=== PATIENT | female | born 1980 | race Caucasian/White ===

== ENCOUNTER 2019-01-30 15:35 | Observation (INO) | payer OTHER ==
[2019-01-30 16:28] VITALS: BMI 27.9
[2019-01-30 17:04] LABS: Absolute Lymphocytes (CBC) 2.3 K/uL (0.7-4.9); Basophils % 1.3 % (0-1.3); Eosinophils % 5.3 % (0-4.4); Hematocrit 40.2 % (36.0-45.0); Lymphocytes % 28.3 % (15.3-44.8); MPV 9.5 fL (7.6-11.3); Monocytes % 7.7 % (3.3-12.3); RBC Red Blood Cell Count 4.42 M/uL (3.86-4.86)
[2019-01-30 17:15] LABS: ALT/SGPT 17 U/L (12-78); AST/SGOT 14 U/L (15-37); Albumin 3.8 g/dL (3.4-5.0); Alkaline Phosphatase 78 U/L (45-117); BUN Blood Urea Nitrogen 8 mg/dL (7-18); Bicarbonate 25 mmol/L (21-32); Bilirubin Total 0.2 mg/dL (0.2-1.0); Glucose Level 77 mg/dL (74-106); Potassium 4.2 mmol/L (3.5-5.1); Protein, Total 6.6 g/dL (6.4-8.2); Sodium Level 142 mmol/L (136-145)
[2019-01-30] MEDS: NACHLORIDE 0.45% 1,000 ML IV SCH (19:03)
--- NOTE | 2019-01-30 19:56 | RAD REPORT ---
EXAM DESCRIPTION: CT - Abdomen Pelvis W Contrast - 01/30/2019 7:01 pm CLINICAL HISTORY: Abdominal pain, right lower quadrant pain COMPARISON: None. TECHNIQUE: Biphasic, helical CT imaging of the abdomen and pelvis was performed following 100 ml non -ionic IV contrast. Oral contrast was given. All CT scans are performed using dose optimization technique as appropriate and may include automated exposure control or mA/KV adjustment according to patient size. FINDINGS: No suspicious findings in the lung bases. The liver, spleen, and pancreas show no suspicious findings. Gallbladder and biliary tree are also wi thout suspicious finding. Symmetric renal function is seen with no hydronephrosis or suspicious renal mass. No pyelonephritis o r acute parenchymal process. No bladder abnormalities. No adrenal abnormalities. Uterus and ovaries s how no suspicious findings. No dilated bowel loops or bowel wall thickening. The appendix is normal. No free air, free fluid or i nflammatory stranding. No hernia, mass or bulky lymphadenopathy. No suspicious bony findings. IMPRESSION: No appendicitis or other acute finding in the right lower quadrant. Overall, CT abdomen and pelvis imaging shows no significant or suspicious finding.
[2019-01-30] MEDS: MORPHINE 4 MG/ML SYR IV PRN (20:36)
[2019-01-31] MEDS: NACHLORIDE 0.45% 1,000 ML IV SCH ×2 (01:54→08:25)
[2019-01-31] MEDS: MORPHINE 4 MG/ML SYR IV PRN ×3 (01:54→14:50)
[2019-01-31] MEDS ORDERED: ONDANSETRON 4 MG/2 ML VIAL IV PRN (08:05)
[2019-01-31 10:48] VITALS: O2SAT 99
[2019-01-31 16:03] VITALS: BP 109/67; TEMP 97.1
--- NOTE | 2019-01-31 21:46 | HP ---
Date of Admission: 01/30/2019 Chief Complaint: Right lower quadrant pain. History Of Present Illness: A 38-year-old female was brought to the office with right lower quadrant pain, nausea, and diarrhea. The patient was examined, and she was found to be very tender in the [facility] lower quadrant with a possibility of acute appendicitis or acute abdomen. The patient was admitt ed for observation. There was no history of blood in the stools. No history of vomiting of blood. Past Medical History: Essentially negative except for foot surgery, and tubal ligation. Family History: Positive for heart disease, hypertension, and hyperlipidemia. Personal History: No known allergies. Home Medicines: None. Review of Systems: Negative. Physical Examination: General: Revealed a 38-year-old female in [id number] pain. Vital Signs: Temperature normal. HEENT: No icterus. Neck: Supple. JVD negative. Chest: Clear. Heart: Regular. Abdomen: Tender right lower quadrant. No palpable mass. Extremities: No edema. Laboratory Data: CAT scan of the abdomen is essentially negative. CBC normal. Chem profile normal. Assessment: Right lower quadrant pain, possible gastroenteritis. The patient received IV fluids, and she is feeling better, and she would like to go home. She will b e discharged on Cipro and pain medication. She will be reexamined in the office to see whether any f urther workup would be necessary. GISELLE/LOCO Voice ID: [id number]
== END 2019-01-31 16:43 | disposition home or self-care (01) ==
LOC: 4TH 15:40
PROVIDERS: ADMIT Internal Medicine; ATTEND Internal Medicine
DX: R10.31 Right lower quadrant pain (principal)
CPT/HCPCS: 36415; 74177; 80053; 84703; 85025; G0378; Q9967

== ENCOUNTER 2020-06-24 07:39 | Emergency (ER) | payer OTHER, SELFPAY ==
--- OUTSIDE RECORDS SUMMARY | 2020-06-24 07:41 | XMS REPORT | Continuity of Care Document ---
:1980 Author Organization [facility] t Address [address] [place] [address] [address] [place] [address] Care Team Providers Name Role Phone Unavailable Unavailable Unavailable Problems This patient has no known problems. Allergies, Adverse Reactions, Alerts This patient has no known allergies or adverse reactions. Medications This patient has no known medications. Procedures This patient has no known procedures. Results Test Description Test Time Test Comments [facility] 2020-05-20 DIAG MAMM BILATERAL BILATERAL [facility] 13:41:13 [facility] CAD CAD DIGITAL DIGITALBILATERAL DIGITAL DIAGNOSTIC MAMMOGRAM 3D/2D WITH CAD: 05/20/2020CLINICAL: Followup to previous exam. Digital breast tomosynthesis was performed in addition to routine CC and MLO views. Current mammographic images were evaluated by either a Auto Load Logic M-Vu or a Mobile Active Defensegic ImageChecker CAD (computer aided detection system). Comparison is made to exams dated 12/17/2018 mammogram - [facility], 07/21/2014 mammogram, and 07/17/2013 mammogram - [facility]-. The tissue of both breasts is heterogeneously dense. This may lower the sensitivity of mammography. No suspicious mass, architectural distortion, malignant type calcification, or lymph node abnormality detected. INCOMPLETE: ADDITIONAL IMAGING EVALUATION NEEDEDThere is no mammographic evidence of malignancy. Bilateral survey ultrasound to follow.- BREAST ULTRASOUND BILATERALULTRASOUND OF BOTH BREASTS: 05/20/2020Comparison is made to exams dated 12/17/2018 mammogram - [facility], 07/21/2014 mammogram, and 07/17/2013 mammogram - [facility]. Color flow and real-time ultrasound of both breasts were performed. Handy scale images of the real-time examination were reviewed. The breast tissue has heterogenous background echotexture. Stable solid oval mass in the left breast at 2 o'clock, 2 cm from nipple, since 01/2019. The rest of the bilateral survey ultrasound is negative. No axillary lymphadenopathy was seen.IMPRESSION: PROBABLY BENIGN - FOLLOW-UP RECOMMENDEDStable mass in the left breast since 2018. BI-RADS 3. A follow-up ultrasound in 12 months is recommended to demonstrate 2 years of stability. Min Duarte M.D. ss/:05/20/2020 13:41:13 Carpenter Mate: Liz HIDALGO, [facility]-letter sent: Short Term Follow Up Mammogram BI-RADS: 0 Incomplete: Additional Imaging Evaluation Needed Ultrasound BI-RADS: 3 Probably benign DIAG MAMM 2020-05-20 DIAG MAMM BILATERAL BILATERAL [facility] 13:41:13 [facility] CAD CAD DIGITAL DIGITALBILATERAL DIGITAL DIAGNOSTIC MAMMOGRAM 3D/2D WITH CAD: 05/20/2020CLINICAL: Followup to previous exam. Digital breast tomosynthesis was performed in addition to routine CC and MLO views. Current mammographic images were evaluated by either a Auto Load Logic M-Vu or a iConclude ImageChecker CAD (computer aided detection system). Comparison is made to exams dated 12/17/2018 mammogram - [facility], 07/21/2014 mammogram, and [facility] The tissue of both breasts is heterogeneously dense. This may lower the sensitivity of mammography. No suspicious mass, architectural distortion, malignant type calcification, or lymph node abnormality detected. INCOMPLETE: ADDITIONAL IMAGING EVALUATION NEEDEDThere is no mammographic evidence of malignancy. Bilateral survey ultrasound to follow.- BREAST ULTRASOUND BILATERALULTRASOUND OF BOTH BREASTS: 05/20/2020Comparison is made to exams dated 12/17/2018 mammogram - [facility], 07/21/2014 mammogram, and [facility]17/[facility]. Color flow and real-time ultrasound of both breasts were performed. Handy scale images of the real-time examination were reviewed. The breast tissue has heterogenous background echotexture. Stable solid oval mass in the left breast at 2 o'clock, 2 cm from nipple, since 01/2019. The rest of the bilateral survey ultrasound is negative. No axillary lymphadenopathy was seen.IMPRESSION: PROBABLY BENIGN - FOLLOW-UP RECOMMENDEDStable mass in the left breast since 2019. BI-RADS 3. A follow-up ultrasound in 12 months is recommended to demonstrate 2 years of stability. Min Duarte M.D. ss/:05/20/2020 13:41:13 Carpenter Mate: Liz HIDALGO, [facility]-letter sent: Short Term Follow Up Mammogram BI-RADS: 0 Incomplete: Additional Imaging Evaluation Needed Ultrasound BI-RADS: 3 Probably benign BREAST ULTRASOUND 2020-05-20 DIAG MAMM BILATERAL B[facility]AL 13:41:13 [facility] CAD DIGITALBILATERAL DIGITAL DIAGNOSTIC MAMMOGRAM 3D/2D WITH CAD: 05/20/2020CLINICAL: Followup to previous exam. Digital breast tomosynthesis was performed in addition to routine CC and MLO views. Current mammographic images were evaluated by either a Auto Load Logic M-Vu or a iConclude ImageChecker CAD (computer aided detection system). Comparison is made to exams dated 12/17/2018 mammogram - [facility], 07/21/2014 mammogram, and [facility]. The tissue of both breasts is heterogeneously dense. This may lower the sensitivity of mammography. No suspicious mass, architectural distortion, malignant type calcification, or lymph node abnormality detected. INCOMPLETE: ADDITIONAL IMAGING EVALUATION NEEDEDThere is no mammographic evidence of malignancy. Bilateral survey ultrasound to follow.- BREAST ULTRASOUND BILATERALULTRASOUND OF BOTH BREASTS: 05/20/2020Comparison is made to exams dated 12/17/2018 mammogram - [facility], 07/21/2014 mammogram, and [facility]17/[facility]. Color flow and real-time ultrasound of both breasts were performed. Handy scale images of the real-time examination were reviewed. The breast tissue has heterogenous background echotexture. Stable solid oval mass in the left breast at 2 o'clock, 2 cm from nipple, since 01/2019. The rest of the bilateral survey ultrasound is negative. No axillary lymphadenopathy was seen.IMPRESSION: PROBABLY BENIGN - FOLLOW-UP RECOMMENDEDStable mass in the left breast since 2019. BI-RADS 3. A follow-up ultrasound in 12 months is recommended to demonstrate 2 years of stability. Min Duarte M.D. ss/:05/20/2020 13:41:13 Carpenter Mate: Liz HIDALGO, [facility] Term Follow Up Mammogram BI-RADS: 0 Incomplete: Additional Imaging Evaluation Needed Ultrasound BI-RADS: 3 Probably benign DIAG MAMM LEFT 2019-02-06 - DIAG MAMM LEFT [facility] CAD DIGITAL 16:20:23 CAD DIGITALUNILATERAL LEFT DIGITAL DIAGNOSTIC MAMMOGRAM 3D/2D WITH CAD: 02/06/2019CLINICAL: Abnormal Mammogram, Diffuse bilateral breast pain. Digital breast tomosynthesis was performed in addition to routine CC and MLO views. Current mammographic images were evaluated by either a Auto Load Logic M-Vu or a iConclude ImageChecker CAD (computer aided detection system). Comparison is made to exams dated 07/21/2014 mammogram, [facility], and 12/17/2018 mammogram - [facility]. The tissue of the left breast is heterogeneously dense. This may lower the sensitivity of mammography. There is a 6 mm oval low density mass with an obscured margin in the left breast at 2 o'clock, 2 cm from the nipple. No other significant masses or calcifications are seen in the left breast. IMPRESSION: INCOMPLETE ASSESSMENT: ADDITIONAL IMAGING EVALUATION RECOMMENDEDThe 6 mm oval low density mass in the left breast is indeterminate. Same day bilateral breast ultrasound was performed. Please see report.Marion Ghotra MD hs/:02/06/2019 16:20:23 Entry: - 02/07/2019 09:47:25Imaging Technologist: Dania HIDALGO, [facility]ADS: 0 Indeterminate BREAST ULTRASOUND 2019-02-06 - BREAST ULTRASOUND BILATERAL 16:20:00 BILATERALULTRASOUND OF BOTH BREASTS AND BOTH AXILLA: 02/06/2019Comparison is made to exams dated 07/21/2014 mammogram, [facility], and 12/17/2018 mammogram - [facility]. Color flow and real-time ultrasound of both breasts and axilla were performed. Handy scale images of the real-time examination were reviewed. There is a 0.6 x 0.5 x 0.3 cm oval mass with a circumscribed margin in the left breast at 2 o'clock, 2 cm from the nipple. This oval mass is hypoechoic. This correlates with mammography findings. No abnormalities were seen sonographically in the left axilla/right axilla or the right breast. IMPRESSION: PROBABLY BENIGN - FOLLOW-UP RECOMMENDEDLEFT BREAST: A 0.6 cm oval circumscribed hypoechoic mass in the left breast at 2 o'clock, 2 cm from the nipple, is probably benign. A follow-up ultrasound in 6 months is recommended to demonstrate stability. RIGHT BREAST: No sonographic evidence of malignancy.The above findings and recommendations were discussed with the patient at the time of the examination.Marion Ghotra MD hs/:02/06/2019 16:20:00 Entry: cp - 02/07/2019 09:48:00Imaging Technologist: Dania HIDALGO, [facility]-FWletter sent: Short Term Follow Up Ultrasound BI-RADS: 3 Probably benign
[2020-06-24 08:20] LABS: Absolute Lymphocytes (CBC) 0.8 K/uL (0.7-4.9); Basophils % 0.4 % (0-1.3); Hematocrit 43.8 % (36.0-45.0); Lymphocytes % 7.4 % (15.3-44.8); MPV 9.6 fL (7.6-11.3); RBC Red Blood Cell Count 4.85 M/uL (3.86-4.86)
[2020-06-24] MEDS ORDERED: NA CHLORIDE 0.9% 1,000 ML ONE (08:20)
[2020-06-24] MEDS ORDERED: FAMOTIDINE 20 MG/2 ML VIAL IV ONE (08:20)
[2020-06-24] MEDS ORDERED: MORPHINE 4 MG/ML SYR ONE ×2 (08:20→11:03)
[2020-06-24] MEDS ORDERED: ONDANSETRON 4 MG/2 ML VIAL ONE ×2 (08:20→11:03)
[2020-06-24 08:37] LABS: Urine Blood TRACE (NEG); Urine Glucose TRACE (NEG); Urine Protein 2+ (NEG)
[2020-06-24 08:37] LABS: ALT/SGPT 22 U/L (12-78); AST/SGOT 20 U/L (15-37); Albumin 3.7 g/dL (3.4-5.0); Alkaline Phosphatase 82 U/L (45-117); BUN Blood Urea Nitrogen 8 mg/dL (7-18); Bicarbonate 25 mmol/L (21-32); Bilirubin Direct < 0.1 mg/dL (0-0.2); Bilirubin Total 0.2 mg/dL (0.2-1.0); Glucose Level 106 mg/dL (74-106); Lipase 37 U/L (73-393); Potassium 3.1 mmol/L (3.5-5.1); Protein, Total 7.7 g/dL (6.4-8.2); Sodium Level 136 mmol/L (136-145)
[2020-06-24] MEDS ORDERED: METRONIDAZOLE 500mg IVPB 500 MG/100 ML BAG IV ONE (08:45)
[2020-06-24] MEDS ORDERED: CIPROFLOXACIN 400mg IV 400 MG/200 ML BAG IV ONE (08:45)
--- NOTE | 2020-06-24 08:47 | RAD REPORT ---
EXAM DESCRIPTION: CTAbdomen Pelvis W Contrast - 06/24/2020 8:27 am CLINICAL HISTORY: Abdominal pain. ABD PAIN COMPARISON: Abdomen Pelvis W Contrast dated 01/30/2019 TECHNIQUE: Biphasic CT imaging of the abdomen and pelvis was performed with 100 ml non-ionic IV cont rast. All CT scans are performed using dose optimization technique as appropriate and may include automated exposure control or mA/KV adjustment according to patient size. FINDINGS: The lung bases are clear. The liver, spleen, pancreas, adrenal glands and kidneys are within normal limits. No bowel obstruction, free air, or abscess. Moderate inflammatory thickening of the colon is seen par ticularly the cecum, ascending colon and transverse colon compatible with colitis. Trace pelvic free fluid. The appendix is normal. No evidence of significant lymphadenopathy. No suspicious bony findings. IMPRESSION: Moderate colitis pattern is seen as detailed.
--- NOTE | 2020-06-24 10:41 | EDPHYS ---
Physician Documentation [facility] Name: Roz Pineda Age: 39 yrs Sex: Female : 1980 Arrival Date: 06/24/2020 Time: 07:42 Bed 18 Private MD: ANNALEE Physician Chago Ortega HPI: 06/24 08:03 This 39 yrs old Female presents to ER via Ambulatory with complaints of martin Abdominal Pain. 08:03 The patient presents with abdominal pain. Onset: The symptoms/episode began/occurred 5 martin day(s) ago. The symptoms do not radiate. Associated signs and symptoms: Pertinent positives: nausea. The symptoms are described as constant, crampy. Modifying factors: The symptoms are alleviated by nothing, the symptoms are aggravated by nothing. The patient has not experienced similar symptoms in the past. 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 - Social history:: Smoking status: . - Family history:: not pertinent. ROS: 08:03 Constitutional: Negative for fever, chills, and weight loss, Eyes: Negative for injury, martin pain, redness, and discharge, ENT: Negative for injury, pain, and discharge, Neck: Negative for injury, pain, and swelling, Cardiovascular: Negative for chest pain, palpitations, and edema, Respiratory: Negative for shortness of breath, cough, wheezing, and pleuritic chest pain, Back: Negative for injury and pain, : Negative for injury, bleeding, discharge, and swelling, MS/Extremity: Negative for injury and deformity, Skin: Negative for injury, rash, and discoloration, Neuro: Negative for headache, weakness, numbness, tingling, and seizure. 08:03 Abdomen/GI: Positive for abdominal pain, abdominal cramps, abdominal distension. Exam: 08:03 Constitutional: This is a well developed, well nourished patient who is awake, alert, martin and in no acute distress. Head/Face: Normocephalic, atraumatic. Eyes: Pupils equal round and reactive to light, extra-ocular motions intact. Lids and lashes normal. Conjunctiva and sclera are non-icteric and not injected. Cornea within normal limits. Periorbital areas with no swelling, redness, or edema. ENT: Nares patent. No nasal discharge, no septal abnormalities noted. Tympanic membranes are normal and external auditory canals are clear. Oropharynx with no redness, swelling, or masses, exudates, or evidence of obstruction, uvula midline. Mucous membranes moist. Neck: Trachea midline, no thyromegaly or masses palpated, and no cervical lymphadenopathy. Supple, full range of motion without nuchal rigidity, or vertebral point tenderness. No Meningismus. Chest/axilla: Normal chest wall appearance and motion. Nontender with no deformity. No lesions are appreciated. Cardiovascular: Regular rate and rhythm with a normal S1 and S2. No gallops, murmurs, or rubs. Normal PMI, no JVD. No pulse deficits. Respiratory: Lungs have equal breath sounds bilaterally, clear to auscultation and percussion. No rales, rhonchi or wheezes noted. No increased work of breathing, no retractions or nasal flaring. Back: No spinal tenderness. No costovertebral tenderness. Full range of motion. Skin: Warm, dry with normal turgor. Normal color with no rashes, no lesions, and no evidence of cellulitis. MS/ Extremity: Pulses equal, no cyanosis. Neurovascular intact. Full, normal range of motion. Neuro: Awake and alert, GCS 15, oriented to person, place, time, and situation. Cranial nerves II-XII grossly intact. Motor strength 5/5 in all extremities. Sensory grossly intact. Cerebellar exam normal. Normal gait. Psych: Awake, alert, with orientation to person, place and time. Behavior, mood, and affect are within normal limits. 08:03 Abdomen/GI: Inspection: abdomen appears normal, Bowel sounds: normal, Palpation: mild abdominal tenderness, Liver: no appreciated palpable abnormalities, Hernia: not appreciated. Vital Signs: 07:47 BP 140 / 98; Pulse 94; Resp 16; Temp 98.2(O); Pulse Ox 98% on R/A; Weight 63.5 kg; tw2 Height 5 ft. 4 in. (162.56 cm); Pain 7/10; 08:37 BP 156 / 86; Pulse 80; Resp 16; Pulse Ox 100% on R/A; Pain 4/10; tw2 09:35 BP 134 / 84; Pulse 77; Resp 17; Pulse Ox 99% on R/A; tw2 10:10 BP 140 / 84; Pulse 77; Resp 17; Pulse Ox 100% ; ll1 11:22 BP 134 / 88; Pulse 80; Resp 17; Pulse Ox 100% ; ll1 07:47 Body Mass Index 24.03 (63.50 kg, 162.56 cm) tw2 MDM: 07:53 Patient medically screened. martin 08:05 Differential diagnosis: appendicitis, bowel obstruction, cholecystitis, Cholelithiasis, martin diverticulitis, gastritis, non-specific abd pain, pancreatitis, Peptic Ulcer Disease, Pyelonephritis, urinary tract infection. Data reviewed: vital signs, nurses notes, lab test result(s), radiologic studies, CT scan. 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 Test interpretation: by ED physician or midlevel provider:. Counseling: I had a detailed discussion with the patient and/or guardian regarding: the historical points, exam findings, and any diagnostic results supporting the discharge/admit diagnosis, lab results, radiology results. 06/24 07:54 Order name: Basic Metabolic Panel; Complete Time: 09:29 tw2 06/24 07:54 Order name: CBC with Diff; Complete Time: 09:29 tw2 06/24 07:54 Order name: Hepatic Function; Complete Time: 09:29 tw2 06/24 07:54 Order name: Lipase; Complete Time: 09:29 tw2 06/24 08:02 Order name: Urine Dipstick--Ancillary (enter results); Complete Time: 09:29 bd 06/24 08:02 Order name: Urine --Ancillary (enter results); Complete Time: 09:29 bd 06/24 08:02 Order name: CT Abd/Pelvis - IV Contrast Only; Complete Time: 09:29 martin 06/24 09:06 Order name: CREATININE WHOLE BLOOD; Complete Time: 09:29 EDNE 06/24 07:54 Order name: IV Saline Lock; Complete Time: 08:06 tw2 06/24 07:54 Order name: Labs collected and sent; Complete Time: 08:06 tw2 11/11 07:54 Order name: Urine Dipstick-Ancillary (obtain specimen); Complete Time: 08:05 06/24 07:54 Order name: Urine Test (obtain specimen); Complete Time: 08:05 06/24 10:38 Order name: PO challenge: juice; Complete Time: 10:39 martin Administered Medications: 08:14 Drug: Zofran (Ondansetron) 4 mg Route: IVP; Site: right antecubital; tw2 08:36 Follow up: Response: No adverse reaction; No adverse reaction, 2 ml tw2 08:15 Drug: NS 0.9% 1000 ml Route: IV; Rate: 1 bolus; Site: right antecubital; tw2 09:52 Follow up: Response: No adverse reaction; IV Status: Completed infusion; IV Intake: tw2 1000ml 08:16 Drug: morphine 4 mg {Note: RASS 0.} Route: IVP; Site: right antecubital; tw2 08:35 Follow up: Response: No adverse reaction; Pain is decreased; RASS: Alert and Calm (0); tw2 RASS: Alert and Calm (0) - 1 ml 08:17 Drug: Pepcid 20 mg Route: IVP; Site: right antecubital; tw2 08:36 Follow up: Response: No adverse reaction; No adverse reaction, 2 ml tw2 08:35 Drug: Flagyl 500 mg Volume: 100 ml; Route: IVPB; Rate: 200 ml/hr; Infused Over: 30 tw2 mins; Site: right antecubital; 09:07 Follow up: Response: No adverse reaction; IV Status: Completed infusion; IV Intake: tw2 100ml 09:07 Drug: Cipro 400 mg Volume: 200 ml; Route: IVPB; Infused Over: 60 mins; Site: right tw2 antecubital; 10:10 Follow up: Response: No adverse reaction; IV Status: Completed infusion; IV Intake: ll1 100ml 10:47 Drug: Potassium Effervescent Tablet 25 mEq Route: PO; ll1 11:24 Follow up: Response: No adverse reaction; RASS: Alert and Calm (0) ll1 10:58 Drug: morphine 4 mg Route: IVP; Site: right antecubital; ll1 11:24 Follow up: Response: No adverse reaction; RASS: Alert and Calm (0) ll1 10:58 Drug: Zofran (Ondansetron) 4 mg Route: IVP; Site: right antecubital; ll1 11:25 Follow up: Response: No adverse reaction; RASS: Alert and Calm (0) ll1 Disposition: 06/24/20 10:40 Discharged to Home. Impression: Abdominal tenderness, Left sided colitis, Hypokalemia. - Condition is Stable. - Discharge Instructions: Abdominal Pain, Adult, Potassium Content of Foods, Abdominal Pain, Adult, [id number], Hypokalemia, Colitis. - Prescriptions for Bentyl 20 mg Oral Tablet - take 1 tablet by ORAL route every 6 hours As needed; 20 tablet. Flagyl 500 mg Oral Tablet - take 1 tablet by ORAL route every 8 hours for 7 days; 21 tablet. Pepcid 20 mg Oral Tablet - take 1 tablet by ORAL route every 12 hours for 10 days; 20 tablet. Zofran 4 mg Oral Tablet - take 1 tablet by ORAL route every 12 hours As needed; 20 tablet. Cipro 500 mg Oral Tablet - take 1 tablet by ORAL route every 12 hours for 7 days; 14 tablet. - Medication Reconciliation Form, Thank You Letter, Antibiotic Education, Prescription Opioid Use form. - Follow up: Private Physician; When: 2 - 3 days; Reason: Recheck today's complaints, Continuance of care, Re-evaluation by your physician. Follow up: Jan Reyes MD; When: 2 - 3 days; Reason: Recheck today's complaints, Continuance of care, Re-evaluation by your physician. - Problem is new. - Symptoms have improved. Signatures: Dispatcher [employer] [facility] [place] Chago Ortega MD MD cha Wise, Tara, RN RN tw2 Carmella Altman RN RN ll1 Corrections: (The following items were deleted from the chart) 11: 10:40 06/24/2020 10:40 Discharged to Home. Impression: Abdominal tenderness; Left sided ll1 colitis; Hypokalemia. Condition is Stable. Forms are Medication Reconciliation Form, Thank You Letter, Antibiotic Education, Prescription Opioid Use. Follow up: Private Physician; When: 2 - 3 days; Reason: Recheck today's complaints, Continuance of care, Re-evaluation by your physician. Follow up: Jan Reyes; When: 2 - 3 days; Reason: Recheck today's complaints, Continuance of care, Re-evaluation by your physician. Problem is new. Symptoms have improved. martin
--- NOTE | 2020-06-24 10:41 | ER ---
Nurse's Notes [facility] Name: Roz Pineda Age: 39 yrs Sex: Female : 1980 Arrival Date: 06/24/2020 Time: 07:42 Bed 18 Private MD: Diagnosis: Abdominal tenderness;Left sided colitis;Hypokalemia Presentation: 06/24 07:48 Chief complaint: Patient states: i was diagnosed with diverticulitis last year and i tw2 think i am having a flare up since Monday, i am nauseous but i do not vomit because i cant eat anything and having diarrhea and abdominal pain all over. Coronavirus screen: diarrhea, nausea. Ebola Screen: Patient denies travel to an Ebola-affected area in the 21 days before illness onset. Initial Sepsis Screen: Does the patient meet any 2 criteria? No. Patient's initial sepsis screen is negative. Does the patient have a suspected source of infection? No. Patient's initial sepsis screen is negative. Risk Assessment: Do you want to hurt yourself or someone else? Patient reports no desire to harm self or others. Onset of symptoms was June 24, 2020. 07:48 Method Of Arrival: Ambulatory tw2 07:48 Acuity: NIGEL 3 tw2 07:[address] Ortega droplet precautions not indicated. tw2 Triage Assessment: 07:50 General: Appears uncomfortable, slender, well groomed, Behavior is cooperative, tw2 appropriate for age, crying. Pain: Complains of pain in abdomen. EENT: No signs and/or symptoms were reported regarding the EENT system. Neuro: Level of Consciousness is awake, alert, obeys commands, Oriented to person, place, time, situation. Cardiovascular: Heart tones S1 S2 Patient's skin is warm and dry. Respiratory: Airway is patent Respiratory effort is even, unlabored, Respiratory pattern is regular, symmetrical, Breath sounds are clear bilaterally. GI: Reports lower abdominal pain, upper abdominal pain, diarrhea, nausea. GI: Abdomen is flat, Bowel sounds present X 4 quads. : No signs and/or symptoms were reported regarding the genitourinary system. Derm: No signs and/or symptoms reported regarding the dermatologic system. Musculoskeletal: Range of motion: intact in all extremities. Musculoskeletal: Circulation, motion, and sensation intact. RETOUCHER: 07:52 LMP 06/13/2020 tw2 Historical: - Allergies: 07:50 No Known Allergies; tw2 - Home Meds: 07:50 None [Active]; tw2 - PMHx: 07:50 Diverticulitis; tw2 - PSHx: 07:50 ankle; tw2 08:11 ; tw2 - Immunization history:: Adult Immunizations. - Social history:: Smoking status: . - Family history:: not pertinent. Screenin:52 Abuse screen: Denies threats or abuse. Nutritional screening: No deficits noted. tw2 Tuberculosis screening: No symptoms or risk factors identified. Fall Risk None identified. Assessment: 07:50 GI: Abd is soft and non tender X 4 quads. Abdomen is tender to palpation X 4 quads. tw2 07:51 Reassessment: see triage assessment. tw2 08:38 Reassessment: Patient appears in no apparent distress at this time. Patient and/or tw2 family updated on plan of care and expected duration. Pain level reassessed. Patient is alert, oriented x 3, equal unlabored respirations, skin warm/dry/pink. Patient states feeling better. 09:37 Reassessment: Patient appears in no apparent distress at this time. Patient and/or tw2 family updated on plan of care and expected duration. Pain level reassessed. Patient is alert, oriented x 3, equal unlabored respirations, skin warm/dry/pink. 10:00 Reassessment: Patient and/or family updated on plan of care and expected duration. Pain ll1 level reassessed. 11:00 Reassessment: Patient and/or family updated on plan of care and expected duration. Pain ll1 level reassessed. Vital Signs: 07:47 BP 140 / 98; Pulse 94; Resp 16; Temp 98.2(O); Pulse Ox 98% on R/A; Weight 63.5 kg; tw2 Height 5 ft. 4 in. (162.56 cm); Pain 7/10; 08:37 BP 156 / 86; Pulse 80; Resp 16; Pulse Ox 100% on R/A; Pain 4/10; tw2 09:35 BP 134 / 84; Pulse 77; Resp 17; Pulse Ox 99% on R/A; tw2 10:10 BP 140 / 84; Pulse 77; Resp 17; Pulse Ox 100% ; ll1 11:22 BP 134 / 88; Pulse 80; Resp 17; Pulse Ox 100% ; ll1 07:47 Body Mass Index 24.03 (63.50 kg, 162.56 cm) tw2 ED Course: 07:42 Patient arrived in ED. ds1 07:43 Virginia Deutsch RN is Primary Nurse. tw2 07:43 Placed in gown. Bed in low position. Pulse ox on. NIBP on. tw2 07:50 Triage completed. tw2 07:50 Arm band placed on. tw2 07:53 Chago Ortega MD is Attending Physician. martin 08:27 CT Abd/Pelvis - IV Contrast Only In Process Unspecified. EDMS 09:53 Report given to ODALIS Ryder. tw2 10:39 Jan Reyes MD is Referral Physician. martin 11:23 IV discontinued, intact, bleeding controlled, No redness/swelling at site. Pressure ll1 dressing applied. 11:25 No provider procedures requiring assistance completed. tw2 Administered Medications: 08:14 Drug: Zofran (Ondansetron) 4 mg Route: IVP; Site: right antecubital; tw2 08:36 Follow up: Response: No adverse reaction; No adverse reaction, 2 ml tw2 08:15 Drug: NS 0.9% 1000 ml Route: IV; Rate: 1 bolus; Site: right antecubital; tw2 09:52 Follow up: Response: No adverse reaction; IV Status: Completed infusion; IV Intake: tw2 1000ml 08:16 Drug: morphine 4 mg {Note: RASS 0.} Route: IVP; Site: right antecubital; tw2 08:35 Follow up: Response: No adverse reaction; Pain is decreased; RASS: Alert and Calm (0); tw2 RASS: Alert and Calm (0) - 1 ml 08:17 Drug: Pepcid 20 mg Route: IVP; Site: right antecubital; tw2 08:36 Follow up: Response: No adverse reaction; No adverse reaction, 2 ml tw2 08:35 Drug: Flagyl 500 mg Volume: 100 ml; Route: IVPB; Rate: 200 ml/hr; Infused Over: 30 tw2 mins; Site: right antecubital; 09:07 Follow up: Response: No adverse reaction; IV Status: Completed infusion; IV Intake: tw2 100ml 09:07 Drug: Cipro 400 mg Volume: 200 ml; Route: IVPB; Infused Over: 60 mins; Site: right tw2 antecubital; 10:10 Follow up: Response: No adverse reaction; IV Status: Completed infusion; IV Intake: ll1 100ml 10:47 Drug: Potassium Effervescent Tablet 25 mEq Route: PO; ll1 11:24 Follow up: Response: No adverse reaction; RASS: Alert and Calm (0) ll1 10:58 Drug: morphine 4 mg Route: IVP; Site: right antecubital; ll1 11:24 Follow up: Response: No adverse reaction; RASS: Alert and Calm (0) ll1 10:58 Drug: Zofran (Ondansetron) 4 mg Route: IVP; Site: right antecubital; ll1 11:25 Follow up: Response: No adverse reaction; RASS: Alert and Calm (0) ll1 Intake: 09:07 IV: 100ml; Total: 100ml. tw2 09:52 IV: 1000ml; Total: 1100ml. tw2 10:10 IV: 100ml; Total: 1200ml. 1 Outcome: 10:40 Discharge ordered by . martin 11:25 Patient left the ED. ll1 11:25 Discharged to home ambulatory, with family. tw2 11:25 Condition: stable 11:25 Discharge instructions given to patient, family, Instructed on discharge instructions, follow up and referral plans. no drinking with medication, no driving heavy equipment, medication usage, Demonstrated understanding of instructions, follow-up care, medications, Prescriptions given X 5 Signatures: Dispatcher [employer] EDMS Chago Ortega MD MD cha Sanford, Demi ds1 Virginia Deutsch RN RN 2 Ninfa Luna 3 Carmella Altman RN RN ll1 Corrections: (The following items were deleted from the chart) 08:04 07:47 BP 140 / 98; Pulse 101bpm; Resp 16bpm; Pulse Ox 98% RA; Temp 98.2F Oral; 63.5 kg; tw2 Height 5 ft. 4 in.; BMI: 24.0; Pain 7/10; dh3
[2020-06-24] MEDS ORDERED: POTASSIUM 25 MEQ EFFERV TAB ONE (10:54)
[2020-06-24 13:09] VITALS: TEMP 98.2
[2020-06-24 13:13] VITALS: O2SAT 100
[2020-06-24 13:15] VITALS: BP 134/88
== END 2020-06-24 11:25 | disposition home or self-care (01) ==
LOC: ER 07:39
DX: K51.50 Left sided colitis without complications (principal); E87.6 Hypokalemia
CPT/HCPCS: 36415; 74177; 80048; 80076; 81003; 81025; 82565; 83690; 85025; J0744; J2405; J7030; Q9967

== ENCOUNTER 2024-04-08 10:38 | Emergency (ER) | payer BC ==
--- OUTSIDE RECORDS SUMMARY | 2024-04-08 10:41 | XMS REPORT | Continuity of Care Document ---
Author Name Unknown Address [address] [place] [address] [place] [id number] [place] [address] thconnect Address [address] [facility]. 1 [address] [place] [address] Care Team Providers Care Lithographic Camera Operator Name Role Phone MILVIA_Freddy Attending Clinician Unavailable MILVIA_Freddy Admitting Clinician Unavailable Payers Payer Name Policy Type Policy Number Effective Date Expirati on Date Source [place] [id number] 2023 00:00:00 Problems Condition Name Condition Details Condition Category Status Onset Date Resolution Date Last Treatment Date Treating Clinician Comments Source Adult health examinatio n Adult Health Examinatio n Problem Active 11-23 00:00: 00 [facility] Social History Smoking Status Start Date Stop Date Source Current Every Day Smoker [facility] Medications Ordered Medication Name Filled Medication Name Start Date Stop Date Current Medication? Ordering Clinician Indication Dosage Frequency Signature (SIG) Comments Components Source estradiol 6 mg implant pellet Take 1 pellet by implantatio n route. estradiol 6 mg implant pellet Take 1 pellet by implantatio n route. 11-23 08:57: 28 No 1pellet (s) estradiol 6 mg implant pellet Take 1 pellet by implantati on route. [facility] testosteron e 100 mg implant pellet Take 100 mg by implantatio n route. testosteron e 100 mg implant pellet Take 100 mg by implantatio n route. 11-23 08:56: 59 No 100mg testostero ne 100 mg implant pellet Take 100 mg by implantati on route. [facility] hydrochloro thiazide 25 mg tablet TAKE 1 TABLET BY MOUTH EVERY DAY hydrochloro thiazide 25 mg tablet TAKE 1 TABLET BY MOUTH EVERY DAY No hydrochlor othiazide 25 mg tablet TAKE 1 TABLET BY MOUTH EVERY DAY [facility] venlafaxine ER 75 mg capsule,ext ended release 24 hr TAKE 1 CAPSULE BY MOUTH EVERY DAY FOR 90 DAYS venlafaxine ER 75 mg capsule,ext ended release 24 hr TAKE 1 CAPSULE BY MOUTH EVERY DAY FOR 90 DAYS No venlafaxin e ER 75 mg capsule,ex tended release 24 hr TAKE 1 CAPSULE BY MOUTH EVERY DAY FOR 90 DAYS [facility] bupropion HCl XL 150 mg 24 hr tablet, extended release TAKE 1 TABLET BY MOUTH EVERY DAY bupropion HCl XL 150 mg 24 hr tablet, extended release TAKE 1 TABLET BY MOUTH EVERY DAY No 1 Q1D bupropion HCl XL 150 mg 24 hr tablet, extended release TAKE 1 TABLET BY MOUTH EVERY DAY [facility] acetaminoph en 300 mg-codeine 30 mg tablet TAKE 1 TABLET BY MOUTH EVERY 4 TO 6 HOURS NEEDED FOR DENTAL PAIN acetaminoph en 300 mg-codeine 30 mg tablet TAKE 1 TABLET BY MOUTH EVERY 4 TO 6 HOURS NEEDED FOR DENTAL PAIN No acetaminop hen 300 mg-codeine 30 mg tablet TAKE 1 TABLET BY MOUTH EVERY 4 TO 6 HOURS NEEDED FOR DENTAL PAIN [facility] losartan 100 mg-hydrochl orothiazide 25 mg tablet Take 1 tablet every day by oral route for 90 days. losartan 100 mg-hydrochl orothiazide 25 mg tablet Take 1 tablet every day by oral route for 90 days. No 1 Q1D losartan 100 mg-hydroch lorothiazi de 25 mg tablet Take 1 tablet every day by oral route for 90 days. [facility] Zepbound 2.5 mg/0.5 mL subcutaneou s pen injector Inject 2.5 mg every week by subcutaneou s route for 28 days. Zepbound 2.5 mg/0.5 mL subcutaneou s pen injector Inject 2.5 mg every week by subcutaneou s route for 28 days. No 2.5mg Q1W Zepbound 2.5 mg/0.5 mL subcutaneo us pen injector Inject 2.5 mg every week by subcutaneo us route for 28 days. [facility] Vital Signs Vital Name Observation Time Observation Value Comments S ource Body Weight 2024-02-23 00:00:00 2367 [oz_av] [facility] BMI (Body Mass Index) 2024-02-23 00:00:00 25.4 kg/m2 [facility] BP Diastolic 2024-02-23 00:00:00 98 mm[Hg] [facility] Height 2024-02-23 00:00:00 64 [in_i] [facility] BP Systolic 2024-02-23 00:00:00 149 mm[Hg] [facility] Body Weight 2023-12-28 00:00:00 2319 [oz_av] [facility] Height 2023-12-28 00:00:00 64 [in_i] [facility] BMI (Body Mass Index) 2023-12-28 00:00:00 24.9 kg/m2 [facility] Height 2023-11-24 00:00:00 64 [in_i] [facility] Body Weight 2023-11-24 00:00:00 2234 [oz_av] [facility] BP Systolic 2023-11-24 00:00:00 124 mm[Hg] [facility] BMI (Body Mass Index) 2023-11-24 00:00:00 24 kg/m2 [facility] BP Diastolic 2023-11-24 00:00:00 84 mm[Hg] [facility] BP Diastolic 2023-11-02 00:00:00 92 mm[Hg] [facility] Body Weight 2023-11-02 00:00:00 2256 [oz_av] [facility] BMI (Body Mass Index) 2023-11-02 00:00:00 24.2 kg/m2 [facility] Height 2023-11-02 00:00:00 64 [in_i] [facility] BP Systolic 2023-11-02 00:00:00 137 mm[Hg] [facility] Body Weight 2023-07-26 00:00:00 2335 [oz_av] [facility] BMI (Body Mass Index) 2023-07-26 00:00:00 25 kg/m2 [facility] BP Diastolic 2023-07-26 00:00:00 132 mm[Hg] [facility] BP Systolic 2023-07-26 00:00:00 169 mm[Hg] [facility] Height 2023-07-26 00:00:00 64 [in_i] [facility] BP Systolic 2023-03-16 00:00:00 137 mm[Hg] [facility] BMI (Body Mass Index) 2023-03-16 00:00:00 24.8 kg/m2 [facility] BP Diastolic 2023-03-16 00:00:00 92 mm[Hg] [facility] Body Weight 2023-03-16 00:00:00 2314 [oz_av] [facility] Height 2023-03-16 00:00:00 64 [in_i] [facility] BP Diastolic 2023-01-17 00:00:00 89 mm[Hg] [facility] Height 2023-01-17 00:00:00 64 [in_i] [facility] BMI (Body Mass Index) 2023-01-17 00:00:00 24.8 kg/m2 [facility] BP Systolic 2023-01-17 00:00:00 155 mm[Hg] [facility] Body Weight 2023-01-17 00:00:00 2309 [oz_av] [facility] BP Diastolic 2022-11-30 00:00:00 84 mm[Hg] [facility] Height 2022-11-30 00:00:00 64 [in_i] [facility] BMI (Body Mass Index) 2022-11-30 00:00:00 24 kg/m2 [facility] BP Systolic 2022-11-30 00:00:00 127 mm[Hg] [facility] Body Weight 2022-11-30 00:00:00 2240 [oz_av] [facility] BP Diastolic 2022-10-28 00:00:00 74 mm[Hg] [facility] Height 2022-10-28 00:00:00 64 [in_i] [facility] BMI (Body Mass Index) 2022-10-28 00:00:00 24.4 kg/m2 [facility] BP Systolic 2022-10-28 00:00:00 122 mm[Hg] [facility] Body Weight 2022-10-28 00:00:00 2272 [oz_av] [facility] BP Diastolic 2022-10-11 00:00:00 101 mm[Hg] [facility] Height 2022-10-11 00:00:00 64 [in_i] [facility] BMI (Body Mass Index) 2022-10-11 00:00:00 23.9 kg/m2 [facility] BP Systolic 2022-10-11 00:00:00 153 mm[Hg] [facility] Body Weight 2022-10-11 00:00:00 2224 [oz_av] [facility] BP Diastolic 2022-09-01 00:00:00 96 mm[Hg] [facility] Height 2022-09-01 00:00:00 64 [in_i] [facility] BMI (Body Mass Index) 2022-09-01 00:00:00 25.6 kg/m2 [facility] BP Systolic 2022-09-01 00:00:00 142 mm[Hg] [facility] Body Weight 2022-09-01 00:00:00 2385.6 [oz_av] [facility] Procedures Procedure Date / Time Performed Performing Clinician Source US, pelvis, transabdominal + transvaginal 2023-12-28 00:00:00 [facility] MAMMO, screening, digital, bilateral 2023-11-24 00:00:00 [facility] MAMMO, screening, digital, bilateral 2022-12-06 00:00:00 [facility] MAMMO, screening, digital, bilateral 2022-10-28 00:00:00 [facility] Encounters Start Date/Time End Date/Time Encounter Type Admission Type Attending [facility] Facility Care Department Encounter ID Source 2024-02-23 00:00:00 2024-02-23 00:00:00 Karl Concepcion MSN, NURSING PROJECT COORDINATOR, SHOW GIRL-C: [address] [place] [address] , Ph. [facility], Karl Concepcion MSN, SHOW GIRL-C [id number] [facility] 2023-12-28 00:00:00 2023-12-28 00:00:00 Karl Concepcion MSN, NURSING PROJECT COORDINATOR, SHOW GIRL-C: [address], [address], [place] [address] , Ph. [facility], Karl Concepcion MSN, SHOW GIRL-C [id number] [facility] 2023-11-24 00:00:00 2023-11-24 00:00:00 BERNARDO Giraldo, NURSING PROJECT COORDINATOR, SHOW GIRL-C: [address], [place] [address] , Ph. SISSON_C [facility], Karl Concepcion MSN, SHOW GIRL-C [id number] [facility] 2023-11-22 00:00:00 2023-11-22 00:00:00 Outpatient [facility] [id number] [facility] 2023-11-02 00:00:00 2023-11-02 00:00:00 Karl Concepcion MSN, NURSING PROJECT COORDINATOR, SHOW GIRL-C: [address], [place] [address] , Ph. SISSON_C [facility], Karl Concepcion, MSN, SHOW GIRL-C [id number] 0321 [facility] 2023-11-02 00:00:00 2023-11-02 00:00:00 Karl Concepcion, MSN, NURSING PROJECT COORDINATOR, SHOW GIRL-C: [address], [address], [place] [address] , Ph. [facility], Karl Concepcion, MSN, SHOW GIRL-C [id number] [facility] 2023-07-26 00:00:00 2023-07-26 00:00:00 Karl Concepcion, MSN, NURSING PROJECT COORDINATOR, SHOW GIRL-C: [address], [address], [place] [address] , Ph. [facility], Karl Concepcion, MSN, SHOW GIRL-C [id number] [facility] 2023-07-12 00:00:00 2023-07-12 00:00:00 Outpatient SISSON_C [facility] [id number] [facility] 2023-06-23 00:00:00 2023-06-23 00:00:00 Outpatient SISSON_C [facility] [id number] [facility] 2023-05-19 00:00:00 2023-05-19 00:00:00 Outpatient [facility]C [facility] [id number] [facility] 2023-04-15 00:00:00 2023-04-15 00:00:00 Outpatient [facility]C [facility] [id number] [facility] 2023-04-13 00:00:00 2023-04-13 00:00:00 Outpatient [facility]C [facility] [id number] [facility] 2023-03-16 00:00:00 2023-03-16 00:00:00 Outpatient [facility]C [facility] [id number] [facility] 2023-03-16 00:00:00 2023-03-16 00:00:00 Karl Concepcion, MSN, NURSING PROJECT COORDINATOR, SHOW GIRL-C: [address], [address], [place] [address] , Ph. [facility], Karl Concepcion, MSN, SHOW GIRL-C [id number] [facility] 2023-01-17 00:00:00 2023-01-17 00:00:00 Karl Concepcion MSN, NURSING PROJECT COORDINATOR, SHOW GIRL-C: [address], [address], [place] [address] , Ph. [facility], Karl Concepcion, MSN, SHOW GIRL-C [id number] [facility] 2022-12-06 00:00:00 2022-12-06 00:00:00 Outpatient [facility]C [facility] [id number] [facility] 2022-12-06 00:00:00 2022-12-06 00:00:00 Outpatient [facility] [id number] [facility] 2022-12-06 00:00:00 2022-12-06 00:00:00 Karl Concepcion MSN, NURSING PROJECT COORDINATOR, SHOW GIRL-C: [address], [address], [place] [address] , Ph. [facility], Karl Concepcion MSN, SHOW GIRL-C [id number] [facility] 2022-11-30 00:00:00 2022-11-30 00:00:00 Outpatient [facility]SON_C [facility] [id number] [facility] 2022-11-30 00:00:00 2022-11-30 00:00:00 Karl Concepcion, MSN, NURSING PROJECT COORDINATOR, SHOW GIRL-C: [address], [address], [place] [address] , Ph. [facility], Karl Concepcion, MSN, SHOW GIRL-C [id number] [facility] 2022-10-28 00:00:00 2022-10-28 00:00:00 Karl Concepcion, MSN, NURSING PROJECT COORDINATOR, SHOW GIRL-C: [address], [address], [place] [address] , Ph. [facility], Karl Concepcion, MSN, SHOW GIRL-C [id number] [facility] 2022-10-11 00:00:00 2022-10-11 00:00:00 Outpatient [facility]C [facility] [id number] [facility] 2022-10-11 00:00:00 2022-10-11 00:00:00 Outpatient [facility]SON[facility]C [facility] [id number] [facility] 2022-10-11 00:00:00 2022-10-11 00:00:00 Karl Concepcion, MSN, NURSING PROJECT COORDINATOR, SHOW GIRL-C: [address], [address], [place] [address] , Ph. [facility], Karl Concepcion, MSN, SHOW GIRL-C [id number] [facility] 2022-09-01 00:00:00 2022-09-01 00:00:00 [facility] [id number] [facility] 2022-09-01 00:00:00 2022-09-01 00:00:00 Karl Concepcion, MSN, NURSING PROJECT COORDINATOR, SHOW GIRL-C: [address], [address], [place] [address] , Ph. [facility] [place] [facility], Karl Concepcion, MSN, SHOW GIRL-C [id number] [facility] 2022-08-23 00:00:00 2022-08-23 00:00:00 [facility] [id number] [facility] Results Test Description Test Time Test Comments Results Resul t Comments Source DIAG MAMM BILATERAL SANTHOSH CAD DIGITAL 2020-05-20 13:41:13 - DIAG MAMM BILATERAL SANTHOSH CAD DIGITALBILATERAL DIGITAL DIAGNOSTIC MAMMOGRAM 3D/2D WITH CAD: 05/20/2020CLINICAL: Followup to previous exam. Digital breast tomosynthesis was performed in addition to routine CC and MLO views. Current mammographic images were evaluated by either a [employer] M-Vu or a [employer] ImageChecker CAD (computer aided detection system). Comparison is made to exams dated 12/17/2018 mammogram - [facility], 07/21/2014 mammogram, and 07/17/2013 mammogram - [facility]-. The tissue of both breasts is heterogeneously dense. This may lower the sensitivity of mammography. No suspicious mass, architectural distortion, malignant type calcification, or lymph node abnormality detected. INCOMPLETE: ADDITIONAL IMAGING EVALUATION NEEDEDThere is no mammographic evidence of malignancy. Bilateral survey ultrasound to follow.- BREAST ULTRASOUND BILATERALULTRASOUND OF BOTH BREASTS: 05/20/2020Comparison is made to exams dated 12/17/2018 mammogram - [facility], 07/21/2014 mammogram, and 07/17/2013 mammogram - [facility]-. Color flow and real-time ultrasound of both [...] of stability. Min Duarte M.D. ss/:05/20/2020 13:41:13 Sheet Metal Layout Mechanic: Lzi HIDALGO, [facility]-letter sent: Short Term Follow Up Mammogram BI-RADS: 0 Incomplete: Additional Imaging Evaluation Needed Ultrasound BI-RADS: 3 Probably benign DIAG MAMM BILATERAL SANTHOSH CAD DIGITAL 2020-05-20 13:41:13 - DIAG MAMM BILATERAL SANTHOSH CAD DIGITALBILATERAL DIGITAL DIAGNOSTIC MAMMOGRAM 3D/2D WITH CAD: 05/20/2020CLINICAL: Followup to previous exam. Digital breast tomosynthesis was performed in addition to routine CC and MLO views. Current mammographic images were evaluated by either a [employer] M-Vu or a [employer] ImageChecker CAD (computer aided detection system). Comparison is made to exams dated 12/17/2018 mammogram - [facility], 07/21/2014 mammogram, and [facility]. The tissue of both breasts is heterogeneously dense. This may lower the sensitivity of mammography. No suspicious mass, architectural distortion, malignant type calcification, or lymph node abnormality detected. INCOMPLETE: ADDITIONAL IMAGING EVALUATION NEEDEDThere is no mammographic evidence of malignancy. Bilateral survey ultrasound to follow.- BREAST ULTRASOUND BILATERALULTRASOUND OF BOTH BREASTS: 05/20/2020Comparison is made to exams dated 12/17/2018 mammogram - [facility], 07/21/2014 mammogram, and [facility]/17/[facility]. Color flow and real-time ultrasound of [...] of stability. Min Duarte M.D. ss/:05/20/2020 13:41:13 Sheet Metal Layout Mechanic: Liz HIDALGO, [facility]-letter sent: Short Term Follow Up Mammogram BI-RADS: 0 Incomplete: Additional Imaging Evaluation Needed Ultrasound BI-RADS: 3 Probably benign BREAST ULTRASOUND BILATERAL 2020-05-20 13:41:13 - DIAG MAMM BILATERAL SANTHOSH CAD DIGITALBILATERAL DIGITAL DIAGNOSTIC MAMMOGRAM 3D/2D WITH CAD: 05/20/2020CLINICAL: Followup to previous exam. Digital breast tomosynthesis was performed in addition to routine CC and MLO views. Current mammographic images were evaluated by either a [employer] M-Vu or a [employer] ImageChecker CAD (computer aided detection system). Comparison is made to exams dated 12/17/2018 mammogram - [facility], 07/21/2014 mammogram, and [facility]. The tissue of both breasts is heterogeneously dense. This may lower the sensitivity of mammography. No suspicious mass, architectural distortion, malignant type calcification, or lymph node abnormality detected. INCOMPLETE: ADDITIONAL IMAGING EVALUATION NEEDEDThere is no mammographic evidence of malignancy. Bilateral survey ultrasound to follow.- BREAST ULTRASOUND BILATERALULTRASOUND OF BOTH BREASTS: 05/20/2020Comparison is made to exams dated 12/17/2018 mammogram - [facility], 07/21/2014 mammogram, and [facility]. Color flow and real-time ultrasound of [...] of stability. Min Duarte M.D. ss/:05/20/2020 13:41:13 Sheet Metal Layout Mechanic: Liz HIDALGO [facility] Short Term Follow Up Mammogram BI-RADS: 0 Incomplete: Additional Imaging Evaluation Needed Ultrasound BI-RADS: 3 Probably benign DIAG MAMM LEFT SANTHOSH CAD DIGITAL 2019-02-06 16:20:23 - DIAG MAMM LEFT SANTHOSH CAD DIGITALUNILATERAL LEFT DIGITAL DIAGNOSTIC MAMMOGRAM 3D/2D WITH CAD: 02/06/2019CLINICAL: Abnormal Mammogram, Diffuse bilateral breast pain. Digital breast tomosynthesis was performed in addition to routine CC and MLO views. Current mammographic images were evaluated by either a [employer] M-Vu or a [employer] ImageChecker CAD (computer aided detection system). Comparison is made to exams dated 07/21/2014 mammogram, 07/17/2013 mammogram - [facility], and 12/17/2018 mammogram - [facility]. The tissue of the left [...] see report.Marion Ghotra MD hs/:02/06/2019 16:20:23 Entry: cp - 02/07/2019 09:47:25Imaging Technologist: Dania HIDALGO [facility]ADS: 0 Indeterminate BREAST ULTRASOUND BILATERAL 2019-02-06 16:20:00 - BREAST ULTRASOUND BILATERALULTRASOUND OF BOTH BREASTS AND BOTH AXILLA: 02/06/2019Comparison is made to exams dated 07/21/2014 mammogram, [facility], and 12/17/2018 mammogram - [facility]. Color flow and real-time ultrasound [...] - 02/07/2019 09:48:00Imaging Technologist: Dania HIDALGO, [facility]-FWletter sent: Short Term Follow Up Ultrasound BI-RADS: 3 Probably benign
--- NOTE | 2024-04-08 11:07 | EDPHYS ---
Physician Documentation [facility] Name: Roz Christianson Age: 43 yrs Sex: Female : 1980 Arrival Date: 04/08/2024 Time: 10:38 Bed DX2 Private MD: ED Physician Giovanni Moreno HPI: 04/08 11:10 This 43 yrs old Female presents to ER via Ambulatory with complaints of ec2 Facial Pain. 11:10 Patient arrives today for left ear pain that has been worsening over the past several ec2 days. Has recently started amoxicillin for more improvement in symptoms. No fevers or chills, no nausea or vomiting, reports that she has some left head pain as well as throat pain. . 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 - Infectious Disease History:: unknown at this time. - Social history:: Smoking status: unknown. ROS: 11:10 Constitutional: as per hpi ec2 Exam: 11:10 Constitutional: GEN: NAD Head: atraumatic Eyes: EOMI Ears: External ears are normal. ec2 Left ear with bullous lesion, fluid behind the tympanic membrane, no vesicular spots CV: regular rate LUNGS: no respiratory distress ABD: non-distended SKIN: no evidence of rashes MSK: no evidence of trauma Vital Signs: 10:57 BP 135 / 84; Pulse 88; Resp 16; Temp 97.1; Pulse Ox 100% on R/A; Weight 65.32 kg; iw Height 5 ft. 5 in. ; Pain 4/10; 10:57 Body Mass Index 23.96 (65.32 kg, 165.1 cm) iw 10:57 Pain Scale: Adult iw MDM: 10:51 Patient medically screened. ec2 11:10 Data reviewed: vital signs. ED course: Patient arrives today for left ear pain. ec2 Examination remarkable for findings as above. Presentation consistent with bullous myringitis. Start the patient antibiotics. Will discharge home. Return precautions given. . Administered Medications: No medications were administered Disposition Summary: 04/08/24 11:06 Discharge Ordered Notes: Location: Home ec2 Condition: Stable ec2 Diagnosis - Bullous myringitis, left ear ec2 Followup: ec2 - With: Private Physician - When: - Reason: Re-evaluation by your physician Discharge Instructions: - Discharge Summary Sheet ec2 - Otitis Media, Adult, [id number] ec2 Forms: - Work release form ec2 - Medication Reconciliation Form ec2 - Antibiotic Education ec2 - Prescription Opioid Use ec2 - Patient Portal Instructions ec2 - Leadership Thank You Letter ec2 Prescriptions: - acetaminophen-codeine 300-15 mg Oral tablet - take 1 tablet ORAL route 2 times per day; 10 tablet; Refills: 0, Product ec2 Selection Permitted - clindamycin HCl 300 mg Oral capsule - take 1 capsule ORAL route every 8 hours for 10 days; 30 capsule; Refills: 0, ec2 Product Selection Permitted Signatures: Eliana Cruz RN RN iw Judith Hilton RN RN ap3 Giovanni Moreno MD MD ec2
--- NOTE | 2024-04-08 11:07 | ER ---
Nurse's Notes [facility] Name: Roz Christianson Age: 43 yrs Sex: Female : 1980 Arrival Date: 04/08/2024 Time: 10:38 Bed DX2 Private MD: Diagnosis: Bullous myringitis, left ear Presentation: 04/08 10:57 Chief complaint: Patient states: has been having left sided headaches and then my left iw ear started hurting and having a sore throat , went to urgent care ON MONDAY and they said it was dental problem, was started on amoxicillin, not any better. Coronavirus screen: At this time, the client does not indicate any symptoms associated with coronavirus-19. Ebola Screen: No symptoms or risks identified at this time. Initial Sepsis Screen: Does the patient meet any 2 criteria? No. Patient's initial sepsis screen is negative. Does the patient have a suspected source of infection? No. Patient's initial sepsis screen is negative. Risk Assessment: Do you want to hurt yourself or someone else? Patient reports no desire to harm self or others. Onset of symptoms was April 02, 2024. 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 - Infectious Disease History:: unknown at this time. - Social history:: Smoking status: unknown. Screenin:04 [facility] ED Fall Risk Assessment (Adult) History of falling in the last 3 months, iw including since admission No falls in past 3 months (0 pts) Confusion or Disorientation No (0 pts) Intoxicated or Sedated No (0 pts) Impaired Gait No (0 pts) Mobility Assist Device Used No (0 pt) Altered Elimination No (0 pt) Score/Fall Risk Level 0 - 2 = Low Risk Oriented to surroundings, Maintained a safe environment. Abuse screen: Denies injuries from another. Nutritional screening: No deficits noted. Tuberculosis screening: No symptoms or risk factors identified. Assessment: 11:04 General: Appears in no apparent distress. Behavior is calm, cooperative. Pain: iw Complains of pain in head, face and left ear. Neuro: Level of Consciousness is awake, alert, obeys commands, Oriented to person, place, time, situation, Moves all extremities. Full function. Cardiovascular: Respiratory: Respiratory effort is even, unlabored, Respiratory pattern is regular. EENT: Reports pain in left ear. Derm: Skin is intact, is healthy with good turgor. Musculoskeletal: Range of motion: intact in all extremities. Vital Signs: 10:57 BP 135 / 84; Pulse 88; Resp 16; Temp 97.1; Pulse Ox 100% on R/A; Weight 65.32 kg; iw Height 5 ft. 5 in. ; Pain 4/10; 10:57 Body Mass Index 23.96 (65.32 kg, 165.1 cm) iw 10:57 Pain Scale: Adult iw ED Course: 10:41 Patient arrived in ED. mg5 10:41 Giovanni Moreno MD is Attending Physician. ec2 10:59 Triage completed. iw 11:01 Arm band placed on. iw 11:05 Eliana Cruz, RN is Primary Nurse. iw 11:05 No provider procedures requiring assistance completed. Patient did not have IV access iw during this emergency room visit. 11:17 Patient has correct armband on for positive identification. Provided Education on: ap3 discharge instructions. Administered Medications: No medications were administered Medication: 11:05 VIS not applicable for this client. iw Outcome: 11:06 Discharge ordered by . ec2 11:16 Discharged to home ambulatory, ap3 11:16 Condition: good 11:16 Discharge instructions given to patient, Instructed on discharge instructions, follow up and referral plans. medication usage, Demonstrated understanding of instructions, follow-up care, medications, Prescriptions given X 2, 11:17 Patient left the ED. ap3 Signatures: Eliana Cruz, ODALIS JACOBO iw Judith Hilton RN RN ap3 Elsa Persaud mg5 Giovanni Moreno MD MD ec2
[2024-04-08 11:32] VITALS: BP 135/84; TEMP 97.1; O2SAT 100
== END 2024-04-08 11:17 | disposition home or self-care (01) ==
LOC: ER 10:38
DX: H73.012 Bullous myringitis, left ear (principal)
CPT/HCPCS: 99283